=== PATIENT | male | born 1980 | race Two or more races ===

== ENCOUNTER 2017-12-30 20:18 | Emergency (ER) | payer SELFPAY, OTHER | END 2017-12-30 21:40 | disposition home or self-care (01) | LOC: FTE 20:18 | DX: H57.11 Ocular pain, right eye (principal); F17.210 Nicotine dependence, cigarettes, uncomplicated | CPT/HCPCS: 99283 ==

== ENCOUNTER 2018-02-10 22:57 | Inpatient (IN) | payer BC ==
[2018-02-11] MEDS ORDERED: ACETAMINOPHEN 325 MG TAB PO (00:30)
[2018-02-11] MEDS ORDERED: POLYMYXIN/TRIMETHOPRIM 10 ML OPH RIGHT EYE (00:30)
[2018-02-11] MEDS ORDERED: DOCUSATE SODIUM 100 MG CAP PO (00:30)
[2018-02-11] MEDS ORDERED: NACL 0.9% 3 ML SYG IV (00:30)
[2018-02-11] MEDS: HYDROCODONE/APAP (5/325) TAB PO (00:54)
[2018-02-11] MEDS: HYDROCODONE/APAP (10/325) TAB PO (02:39)
[2018-02-11] MEDS: DIAZEPAM 5 MG/ML SYG IV (02:54)
[2018-02-11] MEDS: morphine (ER) 15 MG TAB PO ×3 (06:35→21:16)
[2018-02-11] MEDS ORDERED: CYCLOBENZAPRINE 10 MG TAB PO ×2 (09:00)
[2018-02-11] MEDS: KETOROLAC 30 MG INJ IV (10:26)
[2018-02-11 10:49] LABS: ADD MAN DIFF? NO
[2018-02-11 10:51] LABS: BASOPHILS % 0.3 % (0.0-2.0); EOSINOPHILS # 0.1 10^3/ul (0.0-0.5); EOSINOPHILS % 1.3 % (0.0-7.0); HEMATOCRIT 41.7 % (42.0-52.0); HEMOGLOBIN 14.2 g/dl (14.0-18.0); LYMPHOCYTES # 1.8 10^3/ul (0.8-2.9); LYMPHOCYTES % 20.1 % (15.0-51.0); MEAN CORPUSCULAR HEMOGLOBIN 31.1 pg (29.0-33.0); MEAN CORPUSCULAR HGB CONC 34.1 g/dl (32.0-37.0); MEAN CORPUSCULAR VOLUME 91.2 fl (82.0-101.0); MEAN PLATELET VOLUME 9.9 fl (7.4-10.4); MONOCYTE # 0.6 10^3/ul (0.3-0.9); MONOCYTES % 7.1 % (0.0-11.0); NEUTROPHIL # 6.4 10^3/ul (1.6-7.5); NEUTROPHILS % 70.9 % (39.0-77.0); PLATELET COUNT 245 10^3/UL (140-415); RED BLOOD COUNT 4.57 10^6/ul (4.70-6.10)
[2018-02-11 11:16] LABS: ANION GAP 13 (8-16); BLOOD UREA NITROGEN 13 mg/dl (7-20); CALCIUM 9.6 mg/dl (8.4-10.2); CARBON DIOXIDE 34 mmol/L (21-31); CHLORIDE 101 mmol/L (97-110); CREATININE 0.79 mg/dl (0.61-1.24); GLUCOSE 106 mg/dl (70-220); POTASSIUM 4.1 mmol/L (3.5-5.1); SODIUM 144 mmol/L (135-144)
[2018-02-11] MEDS: CYCLOBENZAPRINE 10 MG TAB PO ×2 (13:28→21:16)
[2018-02-11] MEDS: morphine 2 MG INJ IV ×2 (15:16→22:50)
[2018-02-11] MEDS: HYDROmorphONE 0.5 MG/0.5 ML SYG IV (23:29)
[2018-02-11] MEDS: DOCUSATE SODIUM 100 MG CAP PO (23:36)
[2018-02-12] MEDS: DIAZEPAM 5 MG/ML SYG IV (00:43)
[2018-02-12] MEDS: morphine 2 MG INJ IV (03:10)
[2018-02-12] MEDS: morphine (ER) 15 MG TAB PO ×3 (05:15→21:39)
[2018-02-12] MEDS: POLYETHYLENE GLYCOL 17 GM PACKET GTB (09:23)
[2018-02-12] MEDS: CYCLOBENZAPRINE 10 MG TAB PO (09:24)
[2018-02-12] MEDS: HYDROCODONE/APAP (10/325) TAB PO ×2 (09:24→17:29)
[2018-02-12] MEDS: DOCUSATE SODIUM 100 MG CAP PO ×3 (09:24→21:39)
[2018-02-12] MEDS: LORAZEPAM 2 MG INJ IV ×2 (11:10→20:09)
[2018-02-12] MEDS: METHOCARBAMOL 750 MG TAB PO ×3 (13:07→21:39)
[2018-02-13] MEDS: morphine 2 MG INJ IV ×3 (00:42→20:53)
[2018-02-13] MEDS: morphine (ER) 15 MG TAB PO ×4 (06:00→22:16)
[2018-02-13] MEDS: POLYETHYLENE GLYCOL 17 GM PACKET GTB (08:41)
[2018-02-13] MEDS: METHOCARBAMOL 750 MG TAB PO ×3 (08:41→19:59)
[2018-02-13] MEDS: DOCUSATE SODIUM 100 MG CAP PO ×2 (08:42→19:59)
[2018-02-13 15:40] LABS: ADD UMIC NO; UR ASCORBIC ACID NEGATIVE (NEGATIVE); UR BILIRUBIN (Dip) NEGATIVE (NEGATIVE); UR BLOOD (Dip) NEGATIVE (NEGATIVE); UR CLARITY CLEAR (CLEAR); UR COLOR STRAW (YELLOW); UR GLUCOSE (Dip) NEGATIVE (NEGATIVE); UR KETONES (Dip) NEGATIVE (NEGATIVE); UR LEUKOCYTE ESTERASE (Dip) NEGATIVE Leu/ul (NEGATIVE); UR NITRITE (Dip) NEGATIVE (NEGATIVE); UR SPECIFIC GRAVITY (Dip) 1.004 (1.003-1.030); UR TOTAL PROTEIN (Dip) NEGATIVE (NEGATIVE); UR UROBILINOGEN (Dip) NEGATIVE (NEGATIVE)
[2018-02-13] MEDS: HYDROCODONE/APAP (10/325) TAB PO (19:58)
[2018-02-14] MEDS: morphine 2 MG INJ IV ×3 (00:51→12:14)
[2018-02-14] MEDS: morphine (ER) 15 MG TAB PO ×3 (07:57→21:17)
[2018-02-14] MEDS: DOCUSATE SODIUM 100 MG CAP PO ×2 (08:01→21:17)
[2018-02-14] MEDS: METHOCARBAMOL 750 MG TAB PO ×3 (08:01→21:17)
[2018-02-14] MEDS: POLYETHYLENE GLYCOL 17 GM PACKET GTB (08:01)
[2018-02-14] MEDS: HYDROCODONE/APAP (10/325) TAB PO (16:54)
[2018-02-14] MEDS ORDERED: IBUPROFEN 600 MG TAB PO (17:00)
[2018-02-15] MEDS: morphine 2 MG INJ IV ×3 (01:34→17:53)
[2018-02-15] MEDS: HYDROCODONE/APAP (10/325) TAB PO (02:36)
[2018-02-15] MEDS: morphine (ER) 15 MG TAB PO ×3 (05:04→21:49)
[2018-02-15] MEDS: POLYETHYLENE GLYCOL 17 GM PACKET GTB ×2 (09:13→10:40)
[2018-02-15] MEDS: DOCUSATE SODIUM 100 MG CAP PO ×2 (09:13→21:50)
[2018-02-15] MEDS: METHOCARBAMOL 750 MG TAB PO (09:13)
[2018-02-15] MEDS: ENOXAPARIN 30 MG/0.3 ML SYG SC (10:42)
[2018-02-15] MEDS: ONDANSETRON 4 MG TAB PO (17:53)
[2018-02-16] MEDS: morphine 2 MG INJ IV ×3 (01:00→22:47)
[2018-02-16] MEDS: HYDROCODONE/APAP (10/325) TAB PO ×3 (03:15→18:45)
[2018-02-16] MEDS: morphine (ER) 15 MG TAB PO ×3 (05:11→21:06)
[2018-02-16 06:00] LABS: ADD MAN DIFF? NO
[2018-02-16 06:17] LABS: WHITE BLOOD COUNT 9.9 10^3/ul (4.8-10.8)
[2018-02-16 06:17] LABS: BASOPHILS % 0.3 % (0.0-2.0); EOSINOPHILS # 0.3 10^3/ul (0.0-0.5); EOSINOPHILS % 2.8 % (0.0-7.0); HEMATOCRIT 43.9 % (42.0-52.0); LYMPHOCYTES # 2.2 10^3/ul (0.8-2.9); LYMPHOCYTES % 22.7 % (15.0-51.0); MEAN CORPUSCULAR HEMOGLOBIN 31.2 pg (29.0-33.0); MEAN CORPUSCULAR HGB CONC 34.2 g/dl (32.0-37.0); MEAN CORPUSCULAR VOLUME 91.3 fl (82.0-101.0); MEAN PLATELET VOLUME 9.9 fl (7.4-10.4); MONOCYTE # 0.8 10^3/ul (0.3-0.9); MONOCYTES % 7.9 % (0.0-11.0); NEUTROPHIL # 6.5 10^3/ul (1.6-7.5); NEUTROPHILS % 65.8 % (39.0-77.0); PLATELET COUNT 288 10^3/UL (140-415); RED BLOOD COUNT 4.81 10^6/ul (4.70-6.10); RED CELL DISTRIBUTION WIDTH 11.9 % (11.5-14.5)
[2018-02-16 07:59] LABS: ALANINE AMINOTRANSFERASE 27 IU/L (13-69); ALBUMIN 4.2 g/dl (3.3-4.9); ALBUMIN/GLOBULIN RATIO 1.27; ALKALINE PHOSPHATASE 45 IU/L (42-121); ANION GAP 14 (8-16); ASPARTATE AMINO TRANSFERASE 23 IU/L (15-46); BILIRUBIN,INDIRECT 0.4 mg/dl (0-1.1); BILIRUBIN,TOTAL 0.4 mg/dl (0.2-1.3); BLOOD UREA NITROGEN 19 mg/dl (7-20); CALCIUM 9.6 mg/dl (8.4-10.2); CARBON DIOXIDE 29 mmol/L (21-31); CHLORIDE 103 mmol/L (97-110); CREATININE 0.88 mg/dl (0.61-1.24); GLUCOSE 121 mg/dl (70-220); POTASSIUM 4.4 mmol/L (3.5-5.1); SODIUM 142 mmol/L (135-144); TOTAL PROTEIN 7.5 g/dl (6.1-8.1)
[2018-02-16 07:59] LABS: HEMOGLOBIN A1C 4.8 % (0-5.9)
[2018-02-16] MEDS: DOCUSATE SODIUM 100 MG CAP PO ×2 (08:42→21:06)
[2018-02-16] MEDS: ENOXAPARIN 30 MG/0.3 ML SYG SC (08:43)
[2018-02-16] MEDS: POLYETHYLENE GLYCOL 17 GM PACKET GTB (08:44)
[2018-02-16 20:02] LABS: TROPONIN-I < 0.012 ng/ml (0.00-0.12)
[2018-02-16] MEDS: FAMOTIDINE 20 MG TAB PO (21:06)
[2018-02-16] MEDS: NAPROXEN 500 MG TAB PO (21:06)
[2018-02-17] MEDS: HYDROCODONE/APAP (10/325) TAB PO (01:20)
[2018-02-17] MEDS: morphine (ER) 15 MG TAB PO ×3 (05:22→22:25)
[2018-02-17 05:47] LABS: ADD MAN DIFF? NO
[2018-02-17 05:54] LABS: WHITE BLOOD COUNT 9.1 10^3/ul (4.8-10.8)
[2018-02-17 05:54] LABS: BASOPHILS % 0.3 % (0.0-2.0); EOSINOPHILS # 0.2 10^3/ul (0.0-0.5); EOSINOPHILS % 2.1 % (0.0-7.0); HEMATOCRIT 42.5 % (42.0-52.0); HEMOGLOBIN 14.5 g/dl (14.0-18.0); LYMPHOCYTES # 2.6 10^3/ul (0.8-2.9); LYMPHOCYTES % 28.5 % (15.0-51.0); MEAN CORPUSCULAR HEMOGLOBIN 30.6 pg (29.0-33.0); MEAN CORPUSCULAR HGB CONC 34.1 g/dl (32.0-37.0); MEAN CORPUSCULAR VOLUME 89.7 fl (82.0-101.0); MONOCYTE # 0.7 10^3/ul (0.3-0.9); MONOCYTES % 7.8 % (0.0-11.0); NEUTROPHIL # 5.5 10^3/ul (1.6-7.5); NEUTROPHILS % 60.9 % (39.0-77.0); PLATELET COUNT 267 10^3/UL (140-415); RED BLOOD COUNT 4.74 10^6/ul (4.70-6.10); RED CELL DISTRIBUTION WIDTH 12.1 % (11.5-14.5)
[2018-02-17 06:27] LABS: ANION GAP 13 (8-16); BLOOD UREA NITROGEN 23 mg/dl (7-20); CALCIUM 9.8 mg/dl (8.4-10.2); CARBON DIOXIDE 31 mmol/L (21-31); CHLORIDE 103 mmol/L (97-110); CREATININE 0.83 mg/dl (0.61-1.24); GLUCOSE 106 mg/dl (70-220); MAGNESIUM 2.1 mg/dl (1.7-2.5); PHOSPHORUS 4.6 mg/dl (2.5-4.9); POTASSIUM 4.2 mmol/L (3.5-5.1); SODIUM 143 mmol/L (135-144)
[2018-02-17] MEDS: NAPROXEN 500 MG TAB PO ×2 (09:11→20:27)
[2018-02-17] MEDS: FAMOTIDINE 20 MG TAB PO ×2 (09:12→20:26)
[2018-02-17] MEDS: morphine 2 MG INJ IV ×3 (09:12→20:26)
[2018-02-17] MEDS: DOCUSATE SODIUM 100 MG CAP PO ×2 (09:12→20:27)
[2018-02-17] MEDS: POLYETHYLENE GLYCOL 17 GM PACKET GTB (09:12)
[2018-02-17] MEDS: ENOXAPARIN 30 MG/0.3 ML SYG SC (09:16)
[2018-02-18] MEDS: morphine 2 MG INJ IV ×5 (04:40→21:37)
[2018-02-18 06:06] LABS: ADD MAN DIFF? NO
[2018-02-18 06:07] LABS: WHITE BLOOD COUNT 9.4 10^3/ul (4.8-10.8)
[2018-02-18 06:07] LABS: BASOPHILS % 0.4 % (0.0-2.0); EOSINOPHILS # 0.2 10^3/ul (0.0-0.5); EOSINOPHILS % 2.5 % (0.0-7.0); HEMATOCRIT 41.7 % (42.0-52.0); HEMOGLOBIN 14.4 g/dl (14.0-18.0); LYMPHOCYTES # 2.7 10^3/ul (0.8-2.9); LYMPHOCYTES % 28.1 % (15.0-51.0); MEAN CORPUSCULAR HEMOGLOBIN 31.3 pg (29.0-33.0); MEAN CORPUSCULAR HGB CONC 34.5 g/dl (32.0-37.0); MEAN CORPUSCULAR VOLUME 90.7 fl (82.0-101.0); MEAN PLATELET VOLUME 9.7 fl (7.4-10.4); MONOCYTE # 0.7 10^3/ul (0.3-0.9); MONOCYTES % 6.9 % (0.0-11.0); NEUTROPHIL # 5.8 10^3/ul (1.6-7.5); NEUTROPHILS % 61.4 % (39.0-77.0); PLATELET COUNT 269 10^3/UL (140-415); RED CELL DISTRIBUTION WIDTH 12.3 % (11.5-14.5)
[2018-02-18] MEDS: morphine (ER) 15 MG TAB PO ×3 (06:23→22:25)
[2018-02-18 06:42] LABS: ANION GAP 13 (8-16); BLOOD UREA NITROGEN 25 mg/dl (7-20); CALCIUM 9.3 mg/dl (8.4-10.2); CARBON DIOXIDE 31 mmol/L (21-31); CHLORIDE 105 mmol/L (97-110); CREATININE 0.77 mg/dl (0.61-1.24); GLUCOSE 106 mg/dl (70-220); MAGNESIUM 2.1 mg/dl (1.7-2.5); PHOSPHORUS 4.6 mg/dl (2.5-4.9); POTASSIUM 4.1 mmol/L (3.5-5.1); SODIUM 145 mmol/L (135-144)
[2018-02-18] MEDS: POLYETHYLENE GLYCOL 17 GM PACKET GTB (08:47)
[2018-02-18] MEDS: FAMOTIDINE 20 MG TAB PO ×2 (08:48→21:00)
[2018-02-18] MEDS: NAPROXEN 500 MG TAB PO ×2 (08:48→21:00)
[2018-02-18] MEDS: DOCUSATE SODIUM 100 MG CAP PO ×2 (08:49→21:00)
[2018-02-18] MEDS: ENOXAPARIN 30 MG/0.3 ML SYG SC (08:50)
[2018-02-18] MEDS: CYCLOBENZAPRINE 10 MG TAB PO ×2 (17:08→21:00)
[2018-02-19] MEDS: ZOLPIDEM 5 MG TAB PO (00:38)
[2018-02-19] MEDS: morphine 2 MG INJ IV (03:52)
[2018-02-19] MEDS: morphine (ER) 15 MG TAB PO ×3 (06:45→21:08)
[2018-02-19 07:07] LABS: ADD MAN DIFF? NO
[2018-02-19 07:11] LABS: BASOPHILS % 0.5 % (0.0-2.0); EOSINOPHILS # 0.3 10^3/ul (0.0-0.5); HEMOGLOBIN 14.6 g/dl (14.0-18.0); LYMPHOCYTES # 2.5 10^3/ul (0.8-2.9); LYMPHOCYTES % 30.3 % (15.0-51.0); MEAN CORPUSCULAR HEMOGLOBIN 31.1 pg (29.0-33.0); MEAN CORPUSCULAR VOLUME 91.7 fl (82.0-101.0); MEAN PLATELET VOLUME 9.8 fl (7.4-10.4); MONOCYTE # 0.6 10^3/ul (0.3-0.9); MONOCYTES % 7.6 % (0.0-11.0); NEUTROPHIL # 4.8 10^3/ul (1.6-7.5); PLATELET COUNT 263 10^3/UL (140-415); RED BLOOD COUNT 4.69 10^6/ul (4.70-6.10); RED CELL DISTRIBUTION WIDTH 12.2 % (11.5-14.5)
[2018-02-19 07:11] LABS: WHITE BLOOD COUNT 8.3 10^3/ul (4.8-10.8)
[2018-02-19 07:28] LABS: ANION GAP 16 (8-16); BLOOD UREA NITROGEN 30 mg/dl (7-20); CALCIUM 9.4 mg/dl (8.4-10.2); CARBON DIOXIDE 26 mmol/L (21-31); CHLORIDE 106 mmol/L (97-110); CREATININE 0.77 mg/dl (0.61-1.24); GLUCOSE 107 mg/dl (70-220); PHOSPHORUS 4.4 mg/dl (2.5-4.9); POTASSIUM 4.3 mmol/L (3.5-5.1); SODIUM 144 mmol/L (135-144)
[2018-02-19] MEDS: POLYETHYLENE GLYCOL 17 GM PACKET GTB (10:03)
[2018-02-19] MEDS: DOCUSATE SODIUM 100 MG CAP PO ×2 (10:03→18:54)
[2018-02-19] MEDS: CYCLOBENZAPRINE 10 MG TAB PO ×3 (10:04→21:08)
[2018-02-19] MEDS: NAPROXEN 500 MG TAB PO ×2 (10:04→21:09)
[2018-02-19] MEDS: FAMOTIDINE 20 MG TAB PO ×2 (10:04→21:09)
[2018-02-19] MEDS: ENOXAPARIN 30 MG/0.3 ML SYG SC (10:11)
[2018-02-19] MEDS: OXYCODONE/ACETAMINOPHEN (5/325) TAB PO (13:38)
[2018-02-19] MEDS ORDERED: ALBUTEROL 0.083% (NEB) 2.5 MG/3 ML AMP HHN (15:00)
[2018-02-19] MEDS: BISACODYL (EC) 5 MG TAB PO (18:54)
[2018-02-20] MEDS: morphine (ER) 15 MG TAB PO ×3 (06:00→20:11)
[2018-02-20 06:36] LABS: ADD MAN DIFF? NO
[2018-02-20 06:39] LABS: WHITE BLOOD COUNT 8.5 10^3/ul (4.8-10.8)
[2018-02-20 06:39] LABS: BASOPHILS % 0.4 % (0.0-2.0); EOSINOPHILS # 0.3 10^3/ul (0.0-0.5); EOSINOPHILS % 3.6 % (0.0-7.0); HEMATOCRIT 42.3 % (42.0-52.0); HEMOGLOBIN 14.7 g/dl (14.0-18.0); LYMPHOCYTES # 2.3 10^3/ul (0.8-2.9); LYMPHOCYTES % 27.4 % (15.0-51.0); MEAN CORPUSCULAR HEMOGLOBIN 31.6 pg (29.0-33.0); MEAN CORPUSCULAR HGB CONC 34.8 g/dl (32.0-37.0); MEAN PLATELET VOLUME 9.6 fl (7.4-10.4); MONOCYTE # 0.6 10^3/ul (0.3-0.9); MONOCYTES % 7.4 % (0.0-11.0); NEUTROPHIL # 5.2 10^3/ul (1.6-7.5); NEUTROPHILS % 60.5 % (39.0-77.0); PLATELET COUNT 262 10^3/UL (140-415); RED BLOOD COUNT 4.65 10^6/ul (4.70-6.10); RED CELL DISTRIBUTION WIDTH 12.2 % (11.5-14.5)
[2018-02-20 07:19] LABS: ANION GAP 16 (8-16); BLOOD UREA NITROGEN 25 mg/dl (7-20); CALCIUM 9.3 mg/dl (8.4-10.2); CARBON DIOXIDE 24 mmol/L (21-31); CHLORIDE 106 mmol/L (97-110); CREATININE 0.75 mg/dl (0.61-1.24); GLUCOSE 104 mg/dl (70-220); PHOSPHORUS 4.8 mg/dl (2.5-4.9); POTASSIUM 4.3 mmol/L (3.5-5.1); SODIUM 142 mmol/L (135-144)
[2018-02-20] MEDS: POLYETHYLENE GLYCOL 17 GM PACKET GTB (08:32)
[2018-02-20] MEDS: FAMOTIDINE 20 MG TAB PO ×2 (08:33→20:11)
[2018-02-20] MEDS: NAPROXEN 500 MG TAB PO ×2 (08:33→20:11)
[2018-02-20] MEDS: CYCLOBENZAPRINE 10 MG TAB PO ×2 (08:33→12:05)
[2018-02-20] MEDS: DOCUSATE SODIUM 100 MG CAP PO ×2 (08:33→20:13)
[2018-02-20] MEDS: ENOXAPARIN 30 MG/0.3 ML SYG SC (08:35)
== END 2018-02-20 20:30 | disposition home health service (06) | DRG 551 ==
LOC: MS1 22:57 → MS2 23:10
DX: S32.029A Unspecified fracture of second lumbar vertebra, initial encounter for closed fracture (principal); S34.01XA Concussion and edema of lumbar spinal cord, initial encounter; S32.039A Unspecified fracture of third lumbar vertebra, initial encounter for closed fracture; S40.022A Contusion of left upper arm, initial encounter; V49.40XA Driver injured in collision with unspecified motor vehicles in traffic accident, initial encounter; S30.0XXA Contusion of lower back and pelvis, initial encounter
CPT/HCPCS: 72149; 80048; 80053; 81003; 83036; 83735; 84100; 84443; 84484; 85025; 87081; 87086; 93005; 93971; 97116; 97163; 97530; 99217

== ENCOUNTER 2018-04-20 11:18 | Emergency (ER) | payer SELFPAY, BC ==
[2018-04-23] MEDS ORDERED: ASPIRIN 325 MG TAB PO (04:23)
[2018-04-23] MEDS ORDERED: ONDANSETRON 4 MG INJ IV (04:24)
== END 2018-04-20 16:42 | disposition left against medical advice (07) ==
LOC: E/R 16:42
DX: Z53.21 Procedure and treatment not carried out due to patient leaving prior to being seen by health care provider (principal)

== ENCOUNTER 2018-04-23 03:38 | Emergency (ER) | payer BC ==
[2018-04-23] MEDS: morphine 4 MG/ML VIAL IM (04:19)
[2018-04-23] MEDS: KETOROLAC 60 MG INJ IM (04:19)
[2018-04-23] MEDS: ASPIRIN 325 MG TAB PO (05:16)
[2018-04-23] MEDS: ONDANSETRON 4 MG INJ IV (05:16)
[2018-04-23 06:02] LABS: ADD MAN DIFF? NO
[2018-04-23 06:12] LABS: BASOPHILS % 0.3 % (0.0-2.0); EOSINOPHILS # 0.1 10^3/ul (0.0-0.5); EOSINOPHILS % 1.1 % (0.0-7.0); HEMOGLOBIN 16.1 g/dl (14.0-18.0); LYMPHOCYTES # 1.5 10^3/ul (0.8-2.9); LYMPHOCYTES % 15.9 % (15.0-51.0); MEAN CORPUSCULAR HEMOGLOBIN 31.8 pg (29.0-33.0); MEAN CORPUSCULAR VOLUME 90.9 fl (82.0-101.0); MEAN PLATELET VOLUME 10.1 fl (7.4-10.4); MONOCYTE # 0.7 10^3/ul (0.3-0.9); MONOCYTES % 7.6 % (0.0-11.0); NEUTROPHIL # 6.9 10^3/ul (1.6-7.5); NEUTROPHILS % 74.8 % (39.0-77.0); PLATELET COUNT 211 10^3/UL (140-415); RED BLOOD COUNT 5.06 10^6/ul (4.70-6.10); RED CELL DISTRIBUTION WIDTH 12.1 % (11.5-14.5)
[2018-04-23 06:12] LABS: WHITE BLOOD COUNT 9.2 10^3/ul (4.8-10.8)
[2018-04-23 06:31] LABS: ANION GAP 13 (8-16); BLOOD UREA NITROGEN 18 mg/dl (7-20); CALCIUM 9.5 mg/dl (8.4-10.2); CARBON DIOXIDE 26 mmol/L (21-31); CHLORIDE 107 mmol/L (97-110); CREATININE 0.66 mg/dl (0.61-1.24); GLUCOSE 105 mg/dl (70-220); POTASSIUM 4.6 mmol/L (3.5-5.1); SODIUM 141 mmol/L (135-144)
[2018-04-23 06:42] LABS: B-TYPE NATRIURETIC PEPTIDE 19 PG/ML (0-125); TROPONIN-I < 0.010 ng/ml (0.000-0.120)
[2018-04-23] MEDS: FENTAnyl 50 MCG/ML VIAL IV (06:50)
[2018-04-23] MEDS: traZODone 50 MG TAB PO (07:23)
[2018-04-23] MEDS: OXYCODONE/ACETAMINOPHEN (5/325) TAB PO (09:39)
[2018-04-23] MEDS ORDERED: HYDROmorphONE 1 MG/ML SYG IV (10:00)
[2018-04-23] MEDS ORDERED: HYDROCODONE/APAP (5/325) TAB PO (10:30)
[2018-04-23] MEDS ORDERED: NACL 0.9% 3 ML SYG IV (10:30)
[2018-04-23] MEDS ORDERED: QUETIAPINE 100 MG TAB PO ×2 (11:00→21:00)
[2018-04-23] MEDS ORDERED: LINAGLIPTIN 5 MG TABLET PO (11:30)
[2018-04-23 11:55] LABS: CREATINE KINASE 84 IU/L (23-200)
[2018-04-23 12:00] LABS: C-REACTIVE PROTEIN < 0.5 mg/dl (0.0-0.9)
[2018-04-23 12:12] LABS: CK INDEX 0.7; CK-MB 0.57 ng/ml (0.0-2.4); TROPONIN-I < 0.010 ng/ml (0.000-0.120)
[2018-04-23 12:22] LABS: ERYTHROCYTE SEDIMENTATION RATE 4 mm/Hr (0-15)
[2018-04-23] MEDS: GABAPENTIN 300 MG CAP PO (13:00)
[2018-04-23 13:05] LABS: FREE T4 (FREE THYROXINE) 1.13 ng/dl (0.79-2.35)
[2018-04-23] MEDS: SERTRALINE 50 MG TAB PO (13:25)
[2018-04-23] MEDS: QUETIAPINE 100 MG TAB PO (13:26)
[2018-04-23 17:36] LABS: HEMOGLOBIN A1C 5.2 % (0-5.9)
[2018-04-23] MEDS: KETOROLAC 30 MG INJ IM (18:07)
[2018-04-23] MEDS ORDERED: SERTRALINE 50 MG TAB PO (18:30)
[2018-04-23 20:32] LABS: CREATINE KINASE 80 IU/L (23-200)
[2018-04-23 20:44] LABS: CK INDEX 0.5; TROPONIN-I < 0.010 ng/ml (0.000-0.120)
[2018-04-23] MEDS ORDERED: DULOXETINE 30 MG CAP DR PO (21:00)
== END 2018-04-23 23:10 | disposition left against medical advice (07) ==
LOC: E/R 23:10
DX: M62.830 Muscle spasm of back (principal); R07.89 Other chest pain; J45.909 Unspecified asthma, uncomplicated; E66.9 Obesity, unspecified; Z68.26 Body mass index [BMI] 26.0-26.9, adult; Z87.891 Personal history of nicotine dependence
CPT/HCPCS: 36415; 71045; 72125; 72131; 80048; 82550; 82553; 83036; 83880; 84439; 84443; 84484; 85025; 85651; 86140; 93005; 96372; 96374; 96375; 99285-25